=== PATIENT | male | born 1975 | race Caucasian/White ===

== ENCOUNTER 2020-09-07 07:37 | Outpatient (REF) | payer BC, SELFPAY ==
[2020-09-07 11:16] LABS: Estimated Average Glucose 123 mg/dL; Hemoglobin A1C 150.5643 umol/L; Hemoglobin A1c % 5.9 %
[2020-09-07 12:08] LABS: Cholesterol 204 mg/dL; HDL Cholesterol 52 mg/dL; LDL Cholesterol Calculated 137 mg/dl; Triglycerides 79 mg/dL
== END 2020-09-07 07:38 | disposition home or self-care (01) ==
LOC: HO.MANLDS 07:37
PROVIDERS: PCP Internal Medicine; Visit Provider Internal Medicine
DX: E78.00 Pure hypercholesterolemia, unspecified (principal)
CPT/HCPCS: 36415; 80061; 83036